=== PATIENT | female | born 1960 | race Caucasian/White ===

== ENCOUNTER 2024-06-12 08:39 | Day surgery (SDC) | payer BC ==
[~2024-06-12 08:39] MED LIST: Sodium Chloride 0.9% 10 ML Syringe FLUSH PRN; Sodium Chloride 0.9% 10 ML Syringe FLUSH SCH
[2024-06-12] MEDS ORDERED: Propofol 200 MG/20 ML SDV ONE ×3 (09:10→10:12)
[2024-06-12] MEDS ORDERED: Lidocaine 1% 20 ML MDV ONE (09:24)
[2024-06-12] MEDS: Lactated Ringers 1,000 ML IV SCH (09:25)
[2024-06-12] MEDS: Bupivacaine 0.5% 30 ML SDV ONE (10:38)
== END 2024-06-12 11:20 | disposition home or self-care (01) ==
LOC: JD.SDS 08:39
PROVIDERS: ATTEND Surgery
DX: D64.9 Anemia, unspecified (principal); K29.50 Unspecified chronic gastritis without bleeding; K64.8 Other hemorrhoids; K44.9 Diaphragmatic hernia without obstruction or gangrene; F32.A Depression, unspecified; E78.5 Hyperlipidemia, unspecified; Z79.899 Other long term (current) drug therapy; Z88.8 Allergy status to other drugs, medicaments and biological substances
CPT/HCPCS: 43239; 45378; 46221; J0665; J2704; J7120; 00813; J3490